=== PATIENT | male | born 1950 | race Caucasian/White ===

== ENCOUNTER 2021-01-30 21:04 | Emergency (ER) | payer MEDICARE, OTHER, SELFPAY ==
--- NOTE | ~2021-01-30 | XR_ITS ---
XR chest 2V 01/30/2021 21:35 Indication: Left-sided chest pain for one week Procedure: PA and lateral views of the chest Comparison: Findings: Heart size normal. Left basilar atelectasis. No focal pneumonia, edema, effusion or pneumot horax. Scoliosis. No acute osseous abnormality. Impression: 1: Left basilar atelectasis. Reviewed, dictated and finalized at location A. FRAME ASSEMBLER MACHINE Impression: 1: Left basilar atelectasis.
--- NOTE | 2021-01-30 21:07 | ECG_ITS ---
Measurements Intervals [place] Rate: 102 P: 41 IA: 185 QRS: -34 QRSD: 104 T: 63 QT: 341 QTc: 446 Interpretive Statements SINUS TACHYCARDIA LEFT AXIS DEVIATION CANNOT RULE OUT SEPTAL INFARCT, AGE INDETERMINATE MINIMAL Q WAVES- HIGH LATERAL LEADS ABNORMAL ECG Electronically Signed On 01-31-2021 7:12:23 AUTOMOTIVE WORKER by Chapito Hayward D.O.
[2021-01-30 21:27] VITALS: BP 159/91; PULSE 110; RESP 20; O2SAT 97
[2021-01-30 22:15] LABS: Basophils Percent Auto 0.4 % (0.2-1.2); Eosinophils Absolute Auto 0.2 K/mm3 (0-0.3); Eosinophils Percent Auto 2.1 % (0-4.4); Hematocrit 41.7 % (42.0-52.0); Hemoglobin 13.8 g/dL (14.0-18.0); Immature Granulocyte Absolute 0.01 K/mm3 (0.00-0.031); Immature Granulocyte Percent A 0.1 % (0-0.5); Lymphocytes Absolute Auto 1.82 K/mm3 (0.9-3.2); Lymphocytes Percent Auto 25.4 % (18.3-44.2); Mean Corpuscular HGB Conc 33.1 g/dl (32-36); Mean Corpuscular Hemoglobin 30.2 pg (26-34); Mean Corpuscular Volume 91.2 fl (80-100); Mean Platelet Volume 10.2 fl (7.4-10.4); Monocytes Absolute Auto 0.9 K/mm3 (0.1-0.6); Monocytes Percent Auto 12.4 % (2.6-8.5); Neutrophils Absolute Auto 4.3 K/mm3 (1.3-6.7); Neutrophils Percent Auto 59.6 % (45.5-73.1); Platelet Count Result 205 k/mm3 (150-375); Red Blood Count 4.57 M/mm3 (4.6-6.20); White Blood Count 7.2 K/mm3 (4.5-10.0)
[2021-01-30 22:22] LABS: Prothrombin Time 13.3 Seconds (11.1-14.7)
[2021-01-30 22:23] LABS: Partial Thromboplastin Time 27.3 SECONDS (22.3-36.8)
[2021-01-30 22:25] LABS: Anion Gap 5 mmol/L (8-16); Blood Urea Nitrogen 15 mg/dL (9-20); Calcium 8.9 mg/dL (8.4-10.2); Carbon Dioxide 27 mmol/L (22-30); Chloride 107 mmol/L (98-107); Estimated Glomerular Filt Rate > 60; Glucose 130 mg/dL (75-110); Potassium 3.7 mmol/L (3.4-5.0); Sodium 139 mmol/L (137-145)
[2021-01-30 22:32] LABS: Troponin I < 0.012 ng/mL (0.000-0.034)
[2021-01-31] VITALS: PULSE 109
--- NOTE | 2021-01-31 00:02 | ED.CHESTPAIN ---
HPI - Chest Pain General Chief Complaint: Chest Pain Stated Complaint: Chest pain Time Seen by Provider: 01/30/21 23:35 History of Present Illness HPI narrative: Left sided chest pain for the past few days. Located under the left pectoral muscle. Started after chopping wood. Only hurts while moving. Earlier it was burning and severe. No mild and feels like muscle soreness. No SOB, fever, cough. Related Data Allergies Allergy/AdvReac Type Severity Reaction Status Date / Time latex Allergy Mild RASH Verified 03/09/09 12:00 lisinopril Allergy Mild RASH Verified 03/09/09 12:00 Review of Systems Review of Systems: All systems reviewed & are unremarkable except as noted in HPI and below Constitutional: Constitutional: Denies chills Eyes: Eyes: Reports no additional eye complaints ENT: Reports system reviewed and no additional complaints, except as documented Cardiovascular: Cardiovascular: Reports no additional cardiovascular complaints Respiratory: Respiratory: Reports no additional respiratory complaints Gastrointestinal: Gastrointestinal: Reports no additional gastrointestinal complaints FOR[facility]LY [facility], [facility] Past Medical History Medical History (Updated 01/31/21 @ 05:46 by Julio Cesar Moody MD) HTN (hypertension) Surgical History Surgical History (Updated 01/31/21 @ 05:46 by Julio Cesar Moody MD) Hx of cervical spine surgery Social History Social History Gender identity (if verbalized by the patient): Male Exam Const: General: healthy appearing, no acute distress and alert Orientation/consciousness: patient oriented x3 HENMT: Head: normal to inspection Neck: Neck: normal visual inspection and no lymphadenopathy Chest: Chest palpation & inspection: tenderness rib (Left) Resp: Effort & Inspection: normal respiratory effort Auscultation: clear to auscultation bilaterally, no rales, no rhonchi and no wheezes Cardio: Jugular venous distension: no JVD Rate: regular rate Rhythm: regular rhythm Heart sounds: no murmurs GI: Inspection: non-distended GI Palp: Yes Soft to palpation and No Tenderness to palpation present (GI) Skin: General skin exam: normal color Neuro: General: patient oriented x3 and moves all extremities Speech: normal speech Extrem: General: no edema Psych: Appearance: well kempt Affect: normal affect Course Vital Signs Vital signs: Vital Signs Pulse Rate 110 H 01/30/21 21:27 Respiratory Rate 20 01/30/21 21:27 Blood Pressure 159/91 H 01/30/21 21:27 Pulse Oximetry 97 01/30/21 21:27 Temperature 36.9 C 01/31/21 00:17 Pulse Rate 108 H 01/31/21 01:20 Respiratory Rate 19 01/31/21 01:20 Blood Pressure 143/84 H 01/31/21 01:20 Pulse Oximetry 97 01/31/21 01:20 MDM - Chest Pain MDM Narrative Medical decision making narrative: Pain consistent with chest wall strain and he has a good mechanism for it. He has had persistent mild tachycardia. He does seem somewhat anxious and I think this is the most likely cause. Medical Records Data Attestation: I reviewed the patient's medical records. Lab Data Attestation: I reviewed the patient's lab results. Result diagrams: 01/30/21 21:56 01/30/21 21:57 Labs: Lab Results 01/30/21 01/30/21 01/30/21 Range/Units 21:56 21:57 21:57 WBC 7.2 (4.5-10.0) K/mm3 RBC 4.57 L (4.6-6.20) M/mm3 Hgb 13.8 L (14.0-18.0) g/dL Hct 41.7 L (42.0-52.0) % MCV 91.2 (80-100) fl MCH 30.2 (26-34) pg MCHC 33.1 (32-36) g/dl RDW 13.0 (11.5-14.5) % Plt Count 205 (150-375) k/mm3 MPV 10.2 (7.4-10.4) fl Immature Gran % (Auto) 0.1 (0-0.5) % Neut % (Auto) 59.6 (45.5-73.1) % Lymph % (Auto) 25.4 (18.3-44.2) % Sebastian % (Auto) 12.4 H (2.6-8.5) % Eos % (Auto) 2.1 (0-4.4) % Baso % (Auto) 0.4 (0.2-1.2) % Lymph # (Auto) 1.82 (0.9-3.2) K/mm3 Sebastian # (Auto) 0.9 H (0.1-0.6) K/mm3 Eos # (Auto) 0.2 (0-0.3) K/mm3 Baso # (Auto) 0.
[2021-01-31 00:17] VITALS: BP 143/97; PULSE 109; RESP 16; TEMP 36.9; O2SAT 97
[2021-01-31 01:20] VITALS: BP 143/84; PULSE 108; RESP 19; O2SAT 97
== END 2021-01-31 01:20 | disposition home or self-care (01) ==
PROVIDERS: Emergency Provider Emergency Medicine; PCP Family Medicine Adolescent Medicine
DX: S29.011A Strain of muscle and tendon of front wall of thorax, initial encounter (principal); I10 Essential (primary) hypertension; X50.3XXA Overexertion from repetitive movements, initial encounter
CPT/HCPCS: 36415; 71046; 80048; 84484; 85025; 85610; 85730; 93005; 99284

== ENCOUNTER 2022-03-20 14:11 | Observation (INO) | payer MEDICARE, OTHER, SELFPAY ==
[2022-03-20] VITALS (10 sets, daily range): BP systolic 137–166; BP diastolic 74–99; PULSE 74–107; RESP 12–20; TEMP 36.5–36.7; O2SAT 95–99; BMI 29.3
--- NOTE | ~2022-03-20 | XR_ITS ---
EXAMINATION: XR chest 2V DATE: 03/20/2022 14:30 INDICATION: Chest pain, hypertension TECHNIQUE: PA and lateral views of the chest are obtained. COMPARISON: 01/30/2021 FINDINGS: The lungs are free of acute opacities. There is no pleural effusion or pneumothorax. The ca rdiomediastinal silhouette is normal. There is mild thoracic spondylosis. IMPRESSION: 1. No acute cardiopulmonary abnormality. Reviewed, dictated and finalized at location F.
--- NOTE | ~2022-03-20 | NM_ITS ---
EXAMINATION: NM estrada stress w perfusion DATE: 03/21/2022 12:49 INDICATION: Premature ventricular contractions. TECHNIQUE: Rest images were obtained following intravenous administration of 10.3 mCi Tc99m tetrofosm in (Myoview). The patient was infused intravenously with Lexiscan (regadenoson). Then, 30.7 mCi Tc99m tetrofosmin (Myoview) was administered intravenously, and stress images were obtained. Data was fransico nstructed into short axis and horizontal and vertical long axis SPECT images. Gated SPECT images were also obtained. COMPARISON: CT abdomen and pelvis 04/12/2018 FINDINGS: There is no definite reversible or fixed perfusion abnormality to suggest ischemia or infar ction. There is no segmental wall motion abnormality. Left ventricular ejection fraction measures 7 0%. IMPRESSION: 1. No definite ischemia or infarct. 2. Normal left ventricular ejection fraction measuring 70%. Reviewed, dictated and finalized at location A.
--- NOTE | 2022-03-20 14:18 | ECG_ITS ---
Measurements Intervals [place] Rate: 105 P: 29 SD: 148 QRS: -26 QRSD: 104 T: 67 QT: 349 QTc: 463 Interpretive Statements SINUS TACHYCARDIA WITH FREQUENT VENTRICULAR PREMATURE COMPLEXES BORDERLINE LEFT AXIS DEVIATION [QRS AXIS < -20] MODERATE VOLTAGE CRITERIA FOR LVH, CONSIDER NORMAL VARIANT [MEETS CRITERIA IN ONE OF: R(aVL), S(V1), R(V5), R(V5/V6)+S(V1)] ABNORMAL RHYTHM ECG COMPARED TO ECG 01/30/2021 21:14:29 THE PVCS ARE NEW Electronically Signed On 03-21-2022 13:34:39 CDT by Jane Bergman M.D.
[2022-03-20 14:34] LABS: Basophils Percent Auto 0.5 % (0.2-1.2); Eosinophils Absolute Auto 0.1 K/mm3 (0-0.3); Eosinophils Percent Auto 1.3 % (0-4.4); Hematocrit 45.5 % (42.0-52.0); Hemoglobin 14.6 g/dL (14.0-18.0); Immature Granulocyte Absolute 0.02 K/mm3 (0.00-0.031); Immature Granulocyte Percent A 0.3 % (0-0.5); Lymphocytes Absolute Auto 1.59 K/mm3 (0.9-3.2); Lymphocytes Percent Auto 20.4 % (18.3-44.2); Mean Corpuscular HGB Conc 32.1 g/dl (32-36); Mean Corpuscular Hemoglobin 29.7 pg (26-34); Mean Corpuscular Volume 92.5 fl (80-100); Mean Platelet Volume 10.3 fl (7.4-10.4); Monocytes Absolute Auto 0.7 K/mm3 (0.1-0.6); Monocytes Percent Auto 9.1 % (2.6-8.5); Neutrophils Absolute Auto 5.3 K/mm3 (1.3-6.7); Neutrophils Percent Auto 68.4 % (45.5-73.1); Platelet Count Result 207 k/mm3 (150-375); Red Blood Count 4.92 M/mm3 (4.6-6.20); Red Cell Distribution Width 13.3 % (11.5-14.5); White Blood Count 7.8 K/mm3 (4.5-10.0)
[2022-03-20 14:43] LABS: Partial Thromboplastin Time 31.1 SECONDS (22.3-36.8)
[2022-03-20 14:45] LABS: Alanine Aminotransferase 28 U/L (4-50); Alkaline Phosphatase 55 U/L (38-126); Anion Gap 10 mmol/L (8-16); Aspartate Amino Transferase 33 U/L (17-59); Bilirubin,Total 0.4 mg/dL (0.2-1.3); Blood Urea Nitrogen 19 mg/dL (9-20); Calcium 9.4 mg/dL (8.4-10.2); Carbon Dioxide 21 mmol/L (22-30); Chloride 106 mmol/L (98-107); Estimated CRCL calculation 83 ml/min; Estimated Glomerular Filt Rate > 60; Glucose 120 mg/dL (65-110); Lipase 92 U/L (23-300); Sodium 137 mmol/L (137-145)
[2022-03-20 14:54] LABS: Prothrombin Time 12.8 Seconds (11.1-14.7)
[2022-03-20 14:56] LABS: Troponin I < 0.012 ng/mL (0.000-0.034)
[2022-03-20 18:02] LABS: Troponin I < 0.012 ng/mL (0.000-0.034)
--- NOTE | 2022-03-20 18:44 | ED.GENADULT ---
HPI - General Adult General Chief complaint: Unspecified Stated complaint: numbness in arm x few days, back pain, htn Time Seen by Provider: 03/20/22 18:44 Source: patient Mode of arrival: ambulatory Limitations: no limitations History of Present Illness HPI narrative: Patient is a 71-year-old male complaining of elevated blood pressure at home accompanied by my heart feels like it is beating irregular , and left arm tingling. Patient denies any history of hypertension. Patient denies any headache, dizziness, speech or visual disturbance, focal weakness, unsteady gait, chest pain, shortness of breath, abdominal pain, nausea or vomiting. Related Data Allergies Allergy/AdvReac Type Severity Reaction Status Date / Time latex Allergy Mild RASH Verified 03/09/09 12:00 lisinopril Allergy Mild RASH Verified 03/09/09 12:00 Review of Systems Review of Systems: All systems reviewed & are unremarkable except as noted in HPI and below Constitutional: Constitutional: Denies body ache(s), Denies chills, Denies excessive sweating, Denies fatigue, Denies fever(s), Denies headache(s), Denies lethargy, Denies malaise, Denies weakness and Denies weight loss Eyes: Eyes: Denies blurry vision, Denies change in vision and Denies loss of vision ENT: Denies dizziness, Denies ear discharge, Denies headache(s), Denies lip swelling, Denies epistaxis, Denies nasal congestion, Denies neck pain, Denies throat swelling and Denies tongue swelling Cardiovascular: Cardiovascular: Denies chest pain, Denies chest pain at rest, Denies chest pain with activity, Denies diaphoresis, Denies rapid heart rate, Denies edema, Denies irregular heart rhythm, Denies lightheadedness, Denies palpitations, Denies dyspnea and Denies dyspnea on exertion Respiratory: Respiratory: Denies chest congestion, Denies cough, Denies hemoptysis, Denies dyspnea and Denies dyspnea on exertion Gastrointestinal: Gastrointestinal: Denies abdominal pain, Denies melena, Denies hematochezia, Denies diarrhea, Denies nausea, Denies vomiting and Denies hematemesis Musculoskeletal: Musculoskeletal: Denies abnormal gait, Denies deformity, Denies joint swelling, Denies limited range of motion, Denies neck pain and Denies numbness Neurologic: Denies Abnormal speech present, Denies abnormal gait, Denies confusion, Denies dizziness, Denies headache(s), Denies focal weakness, Denies loss of vision, Denies numbness, Denies Other visual disturbances, Denies Sensory deficit (Neuro) and Denies weakness Psychiatric: Psychiatric: Denies confusion, Denies depression, Denies auditory hallucinations, Denies homicidal ideation and Denies suicidal ideation Endocrine: Endocrine: Denies cold intolerance, Denies excessive sweating, Denies fatigue, Denies heat intolerance and Denies palpitations Hematologic/Lymphatic: Hematologic/Lymphatic: Denies easy bleeding and Denies easy bruising Allergic/Immunologic: Allergic/Immunologic: Denies lip swelling, Denies throat swelling and Denies tongue swelling PMFSH Past Medical History Medical History HTN (hypertension) Surgical History Surgical History Hx of cervical spine surgery Social History Social History Gender identity (if verbalized by the patient): Male Exam Const: General: cooperative, healthy appearing, comfortable, no acute distress, well developed, alert and awake; No confusion Orientation/consciousness: oriented to person, oriented to place, oriented to time, patient oriented x3 and No confusion Limitations: no limitations HENMT: Head: normal to inspection, normocephalic and atraumatic Ears: hearing grossly normal bilaterally, TM normal on the right and TM normal on the left General nose exam: Normal external nose present, Normal nares present and No nasal discharge present Face and sinus: n
[2022-03-20] MEDS: LORazepam (*CRX) 0.5 MG TABLET PO (19:31)
[2022-03-20] MEDS: METOPROLOL TARTRATE 50 MG TAB PO (19:31)
--- NOTE | 2022-03-20 21:00 | PC.NURSE ---
Admitting physician Payton at bedside evaluating patient. Will send patient up after assessment.
--- NOTE | 2022-03-20 21:19 | PC.NURSE ---
This patient, Leroy Noguera, was admitted to IMU status, and placed in IMU Room 214-01. Patient/family oriented to hospital policies and general routines including ID bracelet, bed and alarms, visiting hours, pain management, procedures, bathroom and other care routines, personal items, smoking policy, room service/diet, and visiting hours. Valuables list has been completed. Information on how to activate the Rapid Response Team has been discussed. Patient/Family are encouraged to report perceived risks to care and to ask questions if they do not understand what they are told or what they should do.
[2022-03-21] VITALS (9 sets, daily range): BP systolic 120–142; BP diastolic 68–75; PULSE 62–93; RESP 14–18; TEMP 36.6–36.8; O2SAT 95–98
--- NOTE | 2022-03-21 | ECHO_ITS ---
Patient Info Name: Leroy Noguera Age: 71 years : 1950 Gender: Male Ht: 72 in Wt: 216 lbs BSA: 2.25 m2 HR: 69 bpm BP: 131 / 68 mmHg Heart Rhythm: Sinus Rhythm Technical Quality: Fair Exam Date: 03/21/2022 7:34 AM Exam Location: [facility] Pulmonary Patient Status: Inpatient Admit Date: 03/20/2022 Staff Ordering Physician: Marlys Cain MD Slubber Frame Changer: Jayla Lynch RDCS Attending Provider: Marlys Cain MD Referring Physician: Payton SLAUGHTER; Exam Type: CA echo doppler color flow Study Info Indications - PVC'S Complete two-dimensional, color flow and Doppler transthoracic echocardiogram is performed. Summary 1. Complete two-dimensional, color flow and Doppler transthoracic echocardiogram is performed. 2. The left ventricle is mildly enlarged with normal wall thickness and good contractility of all segments. The ejection fraction is 60-64%. There is grade 1 diastolic dysfunction present. 3. Borderline left atrial enlargement. 4. No pulmonary hypertension, estimated pulmonary arterial systolic pressure is 32 mmHg. 5. No significant valve disease. 6. Normal sinus rhythm. Left Ventricle Left ventricular chamber dimension is mildly enlarged. Left ventricular systolic function is normal, estimated at 60-65%. There is no increased left ventricular wall thickness. Left ventricular septal wall motion is normal. The left ventricular diastolic function is grade I diastolic dysfunction. Right Ventricle Right ventricular chamber dimension is normal. Right ventricular systolic function is normal. Left Atria Left atrial chamber dimension is mildly enlarged. Right Atria Right atrial chamber dimension is normal. Aortic Valve The aortic valve is trileaflet. There is mild aortic valve sclerosis. There is no aortic valve stenosis. There is no aortic valve regurgitation. Pulmonic Valve The pulmonic valve is normal. There is no pulmonic valve stenosis. There is trace pulmonic regurgitation. Mitral Valve The mitral valve has normal leaflets. There is no mitral valve stenosis. There is trace mitral valve regurgitation. Tricuspid Valve The tricuspid valve leaflets are normal. There is no significant tricuspid valve stenosis. There is trace tricuspid valve regurgitation. No pulmonary hypertension, estimated pulmonary arterial systolic pressure is 32 mmHg. Pericardium/Pleural The pericardium appears normal. There is no pericardial effusion. Inferior Vena Cava Normal inferior vena cava with >50% collapse upon inspiration consistent with Empty right atrial pressure, 10 mmHg. Aorta The aortic root size at the sinus of Valsalva is normal. The prox ascending aorta size is normal. Left Ventricular Outflow Tract Name Value Normal LVOT 2D LVOT Diameter 2.0 cm LVOT Doppler LVOT Peak Gradient 5 mmHg LVOT Mean Gradient 2 mmHg LVOT VTI 22 cm LVOT VTI/AV VTI Ratio 0.7 LVOT Stroke Volume 71 ml LVOT CO
--- NOTE | 2022-03-21 00:31 | PM.IMHP ---
H&P: HPI History of Present Illness Date/Time: 03/21/22 00:31 Chief Complaint: Palpitations. Narrative: This is a 71-year-old male with past medical history significant for dyslipidemia, gastroesophageal reflux disease, tobacco dependence. Patient presents to the emergency room due to chest pain and palpitations with some nausea but no vomiting. According to patient this has been going on for the last 2-3 days. He denies any syncope, near syncope, lightheadedness, or dizziness, no leg swelling, no ankle swelling, no PND, no orthopnea, he denies any fevers rigors chills cough sputum production. Patient has been in his usual state of health prior to these. Preliminary workup was significant for frequent PVCs present on telemetry. Patient is been admitted for further evaluation, management and treatment. Review of Systems Review of Systems: Palpitations, chest pain. Constitutional: Constitutional: Denies chills, Denies daytime sleepiness, Denies fatigue, Denies fever(s), Denies malaise, Denies night sweats, Denies poor appetite and Denies weakness Eyes: Eyes: Denies change in vision ENT: Denies dysphagia, Denies vertigo, Denies dizziness, Denies nasal congestion, Denies nasal discharge, Denies nasal obstruction and Denies odynophagia Cardiovascular: Cardiovascular: Reports chest pain, Denies diaphoresis, Denies syncope, Denies pedal edema, Denies edema, Reports irregular heart rhythm, Denies leg edema, Denies lightheadedness, Denies radiating jaw, neck or arm pain, Reports palpitations, Denies dyspnea and Denies dyspnea on exertion Respiratory: Respiratory: Denies cough Gastrointestinal: Gastrointestinal: Denies abdominal pain, Denies dyspepsia, Denies heartburn, Denies diarrhea, Denies nausea and Denies vomiting Genitourinary: Genitourinary: Reports no additional male genitourinary complaints and Reports as per HPI Musculoskeletal: Musculoskeletal: Denies myalgias Integumentary/Breasts: Skin/Breast: Denies rash Neurologic: Denies focal weakness and Denies Sensory deficit (Neuro) Psychiatric: Psychiatric: Reports no additional psychiatric complaints and Reports as per HPI Endocrine: Endocrine: Denies cold intolerance, Denies fatigue, Denies flushing, Denies heat intolerance, Denies polyphagia, Denies polydipsia, Denies polyuria and Denies palpitations Hematologic/Lymphatic: Hematologic/Lymphatic: Reports no additional hematologic/lymphatic complaints and Reports as per HPI Allergic/Immunologic: Allergic/Immunologic: Reports no additional allergic/immunologic complaints and Reports as per HPI PMFSH Past Medical History Medical History HTN (hypertension) Surgical History Surgical History Hx of cervical spine surgery Social History Social History Smoking packs per day: 0.2 Smoking cigarettes per day: 4.0 Years smoked: 40 Smoking pack-years: 8.00 Smoking status: Former smoker Tobacco type: cigarettes Second hand tobacco smoke exposure: No Alcohol intake: current Drinks per week: 12 Substance use: never Gender identity (if verbalized by the patient): Male Spiritual care concerns: No Meds Home Medications and Allergies Home Medications Medication Instructions Recorded Confirmed Type benzonatate 200 mg capsule 200 mg PO TID PRN #30 cap 12/07/21 03/20/22 Rx albuterol sulfate [Ventolin HFA] 90 mcg INHALATION PRN 03/20/22 03/20/22 History azithromycin [Zithromax Z-Dmitri] See Rx Instructions PO .COMPLEX 03/20/22 03/20/22 History pantoprazole [Protonix] 40 mg PO DAILY 03/20/22 03/20/22 History pravastatin 20 mg PO DAILY 03/20/22 03/20/22 History tadalafil [Cialis] 5 mg PO DAILY 03/20/22 03/20/22 History Allergies Allergy/AdvReac Type Severity Reaction Status Date / Time latex Allergy Mild RASH Verified 03/20/22 19:32 lisinopril A
--- NOTE | 2022-03-21 00:35 | EST_ITS ---
Patient Info Name: Leroy Noguera Age: 71 years : 1950 Gender: Male Ht: 72 in Wt: 216 lbs BSA: 2.25 m2 Heart Rhythm: Sinus Rhythm Exam Date: 03/21/2022 11:52 AM Exam Location: [facility] Stress Patient Status: Inpatient Admit Date: 03/20/2022 Staff Ordering Physician: Marlys Cain MD Attending Provider: Marlys Cain MD Exercise Technologist: Edgard Paul RD, RT Exercise Physician: Jane Bergman MD Exam Type: CA stress estrada w NM Study Info A regadenoson stress test was performed. Summary 1. No abnormal ST-T wave changes with lexiscan. 2. Nuclear test results to follow. 3. Occasional PVCs seen throughout the test. Protocol: Lexiscan Stress ECG Details Stage: REST Duration (min): 3 min : 5 sec HR (bpm): 89 SBP (mmHg): 127 DBP (mmHg): 78 Stage: REST Duration (min): 6 min : 17 sec HR (bpm): 88 SBP (mmHg): 127 DBP (mmHg): 78 Stage: STAGE 1 Duration (min): 1 min : 0 sec HR (bpm): 104 SBP (mmHg): 129 DBP (mmHg): 68 Stage: RECOVERY Duration (min): 1 min : 0 sec HR (bpm): 102 SBP (mmHg): 129 DBP (mmHg): 68 Stage: RECOVERY Duration (min): 2 min : 0 sec HR (bpm): 101 SBP (mmHg): 129 DBP (mmHg): 68 Stage: RECOVERY Duration (min): 3 min : 0 sec HR (bpm): 101 SBP (mmHg): 135 DBP (mmHg): 72 Stage: RECOVERY Duration (min): 4 min : 0 sec HR (bpm): 101 SBP (mmHg): 135 DBP (mmHg): 72 Stage: RECOVERY Duration (min): 4 min : 23 sec HR (bpm): 96 SBP (mmHg): 135 DBP (mmHg): 72 Rest HR: 88 bpm Peak HR: 106 bpm Rest Sys BP: 127 mmHg Peak Sys BP: 135 mmHg Max Pred HR: 151 bpm % Max Pred HR: 70 % Target HR: 128 bpm Max RPP: 14,310 bpm*mmHg BP Response: Normal blood pressure response Termination Reason: Completed protocol Cardiac Symptoms: None Total Time: 1 min : 0 sec Rest Garner BP: 78 mmHg Peak Garner BP: 72 mmHg Total Dose: 0.4 mg Resting ECG Normal sinus rhythm. Stress ECG No abnormal ST/T wave changes with exercise. Arrhythmias Occasional PVCs. Report Signatures
[2022-03-21 01:48] LABS: Troponin I < 0.012 ng/mL (0.000-0.034)
[2022-03-21] MEDS: ENOXAPARIN 40 MG/0.4 ML SYRINGE SUB-Q (08:25)
--- NOTE | 2022-03-21 10:28 | PM.CNCAR ---
Assessment and Plan Additional Plan this is a 71-year-old man with a previous history of hypertension apparently not currently requiring treatment because his blood pressure improved with weight loss. He is experiencing palpitations which appear to be the result of unifocal PVCs noted on his electrocardiogram. He also has some intermittent interscapular pain his back and some paresthesias in his arms. He is otherwise exerting not have symptoms that are typical of exertional angina. Given his risk factors stress testing should be done to evaluate for possible coronary disease. The patient has no evidence of an acute coronary syndrome and I would like to recommend discharging him today and arrange for a stress echo to be done in my office. I have contacted my office staff to arrange for that appointment. Please contact me if you have any other questions regarding this Situation. Obviously further recommendations may be forthcoming after his stress test takes place [place] MD [facility] History of Present Illness History of Present Illness Consult date/time: 03/21/22 10:28 Consult reason: chest pain Reason For Visit: Angina Equivalent, PVCs Narrative: this is a 71-year-old man unknown to me previously who I am seeing at the request of the hospitalist apparently because of PVCs and some chest discomfort for which she was seen in the emergency room and admitted last evening. The patient is not known to have any cardiac problems prior to this. He states that he has as longstanding dyslipidemia and previously had been treated with a RBC for hypertension which has been discontinued subsequently because his blood pressure improved as he lost weight. Patient has been noticing yesterday that he felt his heart beating irregularly. He felt no in no other distress. He has a blood pressure monitor of some kind at home which he uses and his blood pressure was fine but the device indicated his heart rate was irregular. He then became concerned and came to the emergency room for evaluation. In addition to this he has been having occasional episodes of some pain in the interscapular back region as well as some paresthesias in the left arm. The symptoms are not related to the palpitations that are described above in they are not occurring in exertional fashion he has them occasionally in a sometimes unpredictable fashion. His electrocardiogram shows a sinus mechanism with a leftward axis and PVCs. His biomarkers are negative times 3 sets. 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 He does not notice that exerting himself physically is provoking any symptoms. Denies any orthopnea PND or edema. Review of Systems Constitutional: Constitutional: Reports no additional constitutional complaints Eyes: Eyes: Reports no additional eye complaints ENT: Reports system reviewed and no additional complaints, except as documented Cardiovascular: Cardiovascular: Reports as per HPI Respiratory: Respiratory: Reports no additional respiratory complaints Gastrointestinal: Gastrointestinal: Reports no additional gastrointestinal complaints Musculoskeletal: Musculoskeletal: Reports no additional musculoskeletal complaints Integumentary/Breasts: Skin/Breast: Reports system reviewed and no additional complaints, except as docu Neurologic: Reports system reviewed and no additional complaints, except as documented Endocrine: Endocrine: Reports no additional endocrine complaints Hematologic/Lymphatic: Hematologic/Lymphatic: Reports no additional hematologic/lymphatic complaints Allergic/Immunologic: Allergic/Immunologic: Reports no additional allergic/immunologic complaints PMFSH Past Medical History Medical History HTN (hypertension) Surgical History Surgical History (Reviewed 03/20/22 @ 18:45 by Michael Euceda
--- NOTE | 2022-03-21 13:51 | PM.DS ---
DS: Admitting Diagnosis Discharge Date 03/21/2022 Admitting Diagnosis Chest pain DS: Discharge Diagnosis Discharge Diagnosis (1) Chest pain: Code(s): R07.9 - Chest pain, unspecified Status: Acute Assessment and Plan: Patient will be admitted to [facility]U [facility] scan stress test in a.m. (2) Frequent unifocal PVCs: Code(s): I49.3 - Ventricular premature depolarization Status: Acute Assessment and Plan: WILL CONTINUE TO MONITOR CONTINUOUS TELEMETRY CARDIOLOGY CONSULT (3) Hypertension: Code(s): I10 - Essential (primary) hypertension Status: Acute Assessment and Plan: PATIENT IS NOT ON ANY MEDICATIONS AT THE PRESENT TIME. WILL CONTINUE TO MONITOR (4) Tobacco dependence: Code(s): F17.200 - Nicotine dependence, unspecified, uncomplicated Status: Acute Assessment and Plan: CONSULT ABOUT TOBACCO CESSATION. NICOTINE PATCH NEEDED. DS: Summary Hospital Course Reason for hospitalization: Narrative: This is a 71-year-old male with past medical history significant for dyslipidemia, gastroesophageal reflux disease, tobacco dependence. Patient presents to the emergency room due to chest pain and palpitations with some nausea but no vomiting. According to patient this has been going on for the last 2-3 days. He denies any syncope, near syncope, lightheadedness, or dizziness, no leg swelling, no ankle swelling, no PND, no orthopnea, he denies any fevers rigors chills cough sputum production. Patient has been in his usual state of health prior to these. Preliminary workup was significant for frequent PVCs present on telemetry. Patient is been admitted for further evaluation, management and treatment. Hospital Course: 71-year-old male presented with complaint of chest pain, RI was ruled out as patient's 3 sets of cardiac enzymes are negative and there are no acute changes on EKG, to further evaluate patient had a Lexiscan test which was essentially normal without any ischemia it showed ejection fraction 70%, patient remains clinically stable will discharge the patient today to follow-up with primary care provider as soon as possible. Status at Discharge Functional status at discharge: independent ambulation Overall status at discharge: patient is back to baseline Time Spent with Patient Time attestation: Total time spent providing and/or coordinating discharge services: Patient was seen and examined at the time of the discharge Condition at discharge is stable Code status: Full code. Time spent preparing discharge summary, discharge medications, discussing discharge planning with case folder and patient is 35 minutes. Time spent: Greater than 30 minutes Exam Narrative: Patient is comfortable, NAD HEENT: eyes are clear and none icteric LUNGS: normal respiratory efforts. Lower extremities: no edema SKIN: nonjaundiced Neuro: grossly intact. DS: Data Data Completed and Pending Labs on day of discharge: Labs from last 24 hours 03/21/22 03/20/22 03/20/22 01:19 17:36 14:26 WBC RBC Hgb Hct MCV MCH MCHC RDW Plt Count MPV Immature Gran % (Auto) Neut % (Auto) Lymph % (Auto) [place] % (Auto) Eos % (Auto) Baso % (Auto) Lymph # (Auto) [place] # (Auto) Eos # (Auto) Baso # (Auto) Abs Immat Gran (auto) Absolute Neuts (auto) Absolute Nucleated RBC Nucleated RBC % PT INR APTT Sodium 137 Potassium 4.0 Chloride 106 Carbon Dioxide 21 L Anion Gap 10 BUN 19 Creatinine 0.80 Estim Creat Clear Calc 83 Estimated GFR > 60 Glucose 120 H Calcium 9.4 Total Bilirubin 0.4 AST 33 ALT 28 Alkaline Phosphatase 55 Troponin I < 0.012 < 0.012 < 0.012 Total Protein 8.0 Albumin 5.0 Lipase 92 03/20/22 03/20/22 14:26 14:26 WBC 7.8 RBC 4.92 Hgb 14.6 Hct 45.5 MCV 92.5 MCH 29.7 MCHC 32.1 RDW 13.3 Plt Count
== END 2022-03-21 16:23 | disposition home or self-care (01) ==
LOC: ANHED 20:03 → ANHIMU 21:24
PROVIDERS: Emergency Medicine; Admitting Provider Internal Medicine; Emergency Provider Emergency Medicine; PCP Family Medicine Adolescent Medicine; Visit Provider Family Medicine
DX: R07.9 Chest pain, unspecified (principal); R00.2 Palpitations; R20.0 Anesthesia of skin; I10 Essential (primary) hypertension; E78.5 Hyperlipidemia, unspecified; K21.9 Gastro-esophageal reflux disease without esophagitis; F17.210 Nicotine dependence, cigarettes, uncomplicated; I49.3 Ventricular premature depolarization
CPT/HCPCS: 36415; 71046; 78452; 80053; 83690; 84484; 85025; 85610; 85730; 93005; 93017; 93306; 96372; 99285; A9270; A9502; G0378; J1650; J2785